=== PATIENT | female | born 2000 | race Caucasian/White ===

== ENCOUNTER 2021-12-09 17:40 | Emergency (ER) | payer OTHER ==
[~2021-12-09 17:40] MED LIST: COLACE 100MG C100 MG PO; IBUPROFEN600 MG PO; NORCO 5-325 TA1 EACH PO; PRENATAL FORMU1 EAC1 PO
[2021-12-09 19:48] LABS: HEMOGLOBIN 13.9 gm/dl (12.3-15.3); RED BLOOD COUNT 4.67 M/UL (4.00-5.10); WHITE BLOOD COUNT 5.2 K/UL (4.5-11.0)
[2021-12-09 20:16] LABS: BUN/CREATININE RATIO 13 (0-10)
== END 2021-12-09 22:04 | disposition home or self-care (01) ==
LOC: ER1 17:40
PROVIDERS: Physician Assistant
DX: R10.9 Unspecified abdominal pain (principal); R10.817 Generalized abdominal tenderness
CPT/HCPCS: 80053; 81001; 83690; 84703; 85025; 99284; Q9967